=== PATIENT | female | born 1970 | race Caucasian/White ===

== ENCOUNTER → 2024-02-26 | Outpatient (CLI) | payer OTHER ==
--- NOTE | 2024-02-26 11:20 | XR ---
EXAMINATION TYPE: XR ankle complete RT DATE OF EXAM: 02/26/2024 COMPARISON: None HISTORY: Ankle contusion, repetitive motion TECHNIQUE: 3 view right ankle FINDINGS: Ankle mortise is intact. No acute fracture or dislocation evident. Tiny Achilles calcaneal heel spur is present. Follow up exams can be performed 7-10 days from acute trauma for continued pain. IMPRESSION: 1. No acute osseous abnormality right ankle.
--- NOTE | 2024-02-26 11:55 | XR ---
EXAMINATION TYPE: XR foot complete RT DATE OF EXAM: 02/26/2024 COMPARISON: None HISTORY: Pain with repetitive motion TECHNIQUE: 3 view right foot FINDINGS: Hallux valgus deformity is present. There is varus deformity of the distal fifth and fourth digits. Joint spaces are preserved. Hammertoe is evident. No acute fracture or dislocation evident. Soft tissues appear normal. Follow up exams can be performed 7-10 days from acute trauma for continued pain. IMPRESSION: 1. Varus and valgus deformities of the digits discussed above. 2. No acute osseous abnormality radiographically apparent.
--- NOTE | 2024-02-26 12:22 | XR ---
EXAMINATION TYPE: XR knee complete LT DATE OF EXAM: 02/26/2024 COMPARISON: None HISTORY: L knee contusion TECHNIQUE: 3 view left knee FINDINGS: No acute fractures or dislocations. Mild narrowing of the medial compartment joint space is present. No joint effusion is evident. Follow up exams can be performed 7-10 days from acute trauma for continued pain. IMPRESSION: 1. No acute osseous abnormality
== END | disposition home or self-care (01) ==
LOC: RADXRMAIN 10:37
PROVIDERS: ATTEND Emergency Medicine
DX: S83.92XA Sprain of unspecified site of left knee, initial encounter (principal); S93.401A Sprain of unspecified ligament of right ankle, initial encounter; M21.071 Valgus deformity, not elsewhere classified, right ankle